=== PATIENT | male | born 1940 | race Caucasian/White ===

== ENCOUNTER 2016-09-28 12:51 | Day surgery (SDC) | payer MEDICARE, OTHER ==
[~2016-09-28 12:51] MED LIST: AMIODARONE 100100 MG PO; AMIODARONE 200200 MG PO; CHEWABLE ASPIRI81 MG PO; CLARITIN 10MG T10 MG PO; GEMFIBROZIL600 MG PO; MECLIZINE HYDRO25 MG PO; OCUVITE1 TA1 PO; PRAVASTATIN 20M20 MG PO; PROTONIX 40MG T40 MG PO; VALIUM 2MG TABLE2 MG PO
--- NOTE | 2016-09-28 16:17 | Operative Note ---
Colonoscopy ([facility]) Procedure date: 09/28/16 Date of : 44 Procedure:Colonoscopy Colonoscopy with cold snare polypectomy Indications: Mr. Earl is a 76-year-old gentleman who is here for screening/surveillance colonoscopy. His last colonoscopy was 16 or 17 years ago. He reports no abdominal pain, weight loss, change in his bowel habits or rectal bleeding. He reports no family history of colon cancer. Performing Provider: Rhoda Harvey MD Referrring Provider: Moises Garcia M.D. Sedation: Fentanyl 150 mg IV/Versed 7 mg IV Procedure: Prior to the procedure, a history and physical exam was performed, and patient medications and allergies were reviewed. The risks and benefits of the procedure and the sedation options and risks were discussed with the patient. All questions were answered and informed consent was obtained. Patient identification and proposed procedure were verified by the physician and the nurse. The patient was placed in a left lateral decubitus position. Throughout the procedure, the patient's blood pressure, pulse, and oxygen saturations were monitored continuously. Findings: On digital rectal examination there was normal rectal tone. There were no external hemorrhoids. The prostate was 2+, mildly firm in a symmetric without nodules. The colonoscope was introduced through the anal canal to the rectum and advanced to the cecum. The ileocecal valve and appendiceal orifice were identified. The scope was advanced a short distance into the ileum which appeared grossly normal. The scope was then withdrawn into the colon. There was a single diminutive cecal polyp removed via cold snare polypectomy. The remaining cecum, ascending, transverse, descending, sigmoid and rectum were grossly normal. There were no mucosal abnormalities identified. Upon retroflexion within the rectum there were grade 1 internal hemorrhoids. Impressions: 1. Cecal polyp 2. Grade 1 internal hemorrhoids Recommendations: I will follow up the polyp pathology and recommend repeat colonoscopy again in 5 years based upon the polyp histology. I would encourage fiber supplementation on a long-term daily maintenance basis. Complications: None EBL (ml): 0 at [id number]
[2016-09-28 17:14] VITALS: BP 124/75
== END 2016-09-28 17:13 | disposition home or self-care (01) ==
LOC: SDC 12:51
PROVIDERS: Internal Medicine Gastroenterology
PROC: 0DBH8ZX Excision of Cecum, Via Natural or Artificial Opening Endoscopic, Diagnostic (ICD-10-PCS; principal; 2016-09-28 14:00)
DX: Z12.11 Encounter for screening for malignant neoplasm of colon (principal); D12.0 Benign neoplasm of cecum; K64.0 First degree hemorrhoids